=== PATIENT | female | born 1990 | race Two or more races ===

== ENCOUNTER 2017-09-04 10:52 | Emergency (ER) | payer MEDICAID ==
--- NOTE | 2017-09-04 11:42 | ER Document Report ---
ED Medical Screen (RME) - General Chief Complaint: Abdominal Pain Stated Complaint: LOWER ABDOMINAL PAIN Time Seen by Provider: 09/04/17 11:38 Notes: 27-year-old female. Limited German. LMP 07/22/2017. Positive hCG at home. Suprapubic pain and cramping. I have greeted and performed a rapid initial assessment of this patient. A comprehensive ED assessment and evaluation of the patient, analysis of test results and completion of the medical decision making process will be conducted by additional ED providers. (CORINNE FRAZIER) - Related Data Allergies/Adverse Reactions: Penicillins Allergy (Verified 09/04/17 10:54) Physical Exam - Vital signs Interpretation: Hypertensive - Discussed with patient for follow-up - Vital signs Vitals: Temp Pulse Resp BP Pulse Ox 98.5 F 98 18 126/77 H 100 09/04/17 11:01 09/04/17 11:01 09/04/17 11:01 09/04/17 11:01 09/04/17 11:01 - Notes Notes: Please note the patient was examined in the hallway is no rooms were available with current code going on. She was fully clothed. GENERAL: VS as per nursing doc. Well-appearing, well-nourished and in no acute distress. HEAD: Atraumatic, normocephalic. EYES: Sclera anicteric, no conjunctival injection or discharge. ENT: Moist mucous membranes. LUNGS: Breath sounds clear to auscultation bilaterally and equal. No wheezes rales or rhonchi. HEART: Regular rate and rhythm without murmurs. ABDOMEN: Soft, no obvious tenderness or mass noted in the sitting upright fully clothed position. PSYCH: Normal mood, normal affect. SKIN: Warm, dry. (MILTON BAKER) Course - Laboratory Result Diagrams: 09/04/17 11:53 - Re-evaluation Re-evalutation: 09/04/17 15:24 The patient needed further examination, particularly of her abdomen which cannot be performed adequately closed and in the hallway. I discussed with the patient we would need to get an servicenow administrator which is Iza here as there was some limitations in understanding though she seemed to understand for the most part. We were attempting to move her to room 7 when she told the nurse she did not want to stay any longer. I went and saw ther again and discussed with her the best I could risks and she understood I could not rule out other emergent cause of her abdominal pain. I discussed with her the findings we had at this point and that she will be leaving AMA and she voices understanding. She would not wait for me to get Iza to definitively explain this further. She did speak some partial language and appeared to understand but again refused to wait any longer. (SAMUELMILTON) - Vital Signs Vital signs: Temp Pulse Resp BP Pulse Ox 98.5 F 98 18 126/77 H 100 09/04/17 11:01 09/04/17 11:01 09/04/17 11:01 09/04/17 11:01 09/04/17 11:01 - Laboratory Laboratory results interpreted by me: 09/04/17 09/04/17 09/04/17 11:53 11:53 11:53 WBC 12.0 H Beta HCG, Quant 64360.00 H Urine HCG, Qual POSITIVE H Doctor's Discharge - Discharge Clinical Impression: Abdominal pain, Instructions: Abdominal Pain ([facility]) Additional Instructions: I was unable to perform a complete evaluation on you as you know. Return if you change your mind as I cannot rule out other causes of abdominal pain which can be serious or life-threatening on occasion. Your ultrasound showed a living fetus with heart rate with an estimated date of delivery April 29, 2018. This puts you approximately 6 weeks and 1 day today. Make sure you get follow-up in [place] and further care as discussed. I would recommend vitamins with iron or at least a multivitamin until you can get further follow-up.
[2017-09-04 12:09] LABS: ABSOLUTE BASOPHILS # (AUTO) 0.1 10^3/uL (0.0-0.2); ABSOLUTE EOSINOPHILS # (AUTO) 0.1 10^3/uL (0.0-0.6); ABSOLUTE LYMPHOCYTES (AUTO) 3.2 10^3/uL (0.5-4.7); ABSOLUTE MONOCYTES (AUTO) 0.5 10^3/uL (0.1-1.4); ABSOLUTE NEUT (AUTO) 8.2 10^3/uL (1.7-8.2); BASOPHILS % (AUTO) 0.5 % (0-2); EOSINOPHILS % (AUTO) 0.9 % (0-6); HEMATOCRIT 40.5 % (36.0-47.0); HEMOGLOBIN 13.5 g/dL (12.0-15.5); LYMPHOCYTES % (AUTO) 26.6 % (13-45); MEAN CORPUSCULAR HEMOGLOBIN 28.1 pg (27.0-33.4); MEAN CORPUSCULAR HGB CONC 33.4 g/dL (32.0-36.0); MEAN CORPUSCULAR VOLUME 84 fl (80-97); MONOCYTES % (AUTO) 3.8 % (3-13); PLATELET COUNT 338 10^3/uL (150-450); RED BLOOD COUNT 4.81 10^6/uL (3.72-5.28); RED CELL DISTRIBUTION WIDTH 12.9 % (11.5-14.0); SEGMENTED NEUTROPHILS % (AUTO) 68.2 % (42-78); TOTAL CELLS COUNTED % (AUTO) 100 %
[2017-09-04 12:19] LABS: APPEARANCE,URINE SLIGHTLY-CLOUDY; BILIRUBIN,URINE NEGATIVE (NEGATIVE); COLOR,URINE YELLOW; GLUCOSE, URINE NEGATIVE (NEGATIVE); KETONES,URINE NEGATIVE (NEGATIVE); LEUKOCYTE ESTERASE,URINE NEGATIVE (NEGATIVE); NITRITE,URINE NEGATIVE (NEGATIVE); PROTEIN,URINE NEGATIVE (NEGATIVE); URINE SPECIFIC GRAVITY 1.013; UROBILINOGEN,URINE NEGATIVE mg/dL (<2.0)
--- NOTE | 2017-09-04 15:23 | RADIOLOGY REPORT (SQ) ---
EXAM DESCRIPTION: U/S OB TRANSVAGINAL W/O DOP COMPLETED DATE/TIME: 09/04/2017 2:46 pm REASON FOR STUDY: Suprapubic pain COMPARISON: None. TECHNIQUE: Transvaginal static and realtime grayscale images acquired of the pelvis. Additional jesica cted spectral and color Doppler images recorded. All images stored on PACs. [id number] LIMITATIONS: None. FINDINGS: FETUS: Living intrauterine . EGA: 6 weeks 1 day GABINO: 04/29/2018 FHR: 104 beats per minute. SUBCHORIONIC BLEED: No SIZE OF BLEED: Not applicable. UTERUS: No masses. No anomalies. CERVICAL LENGTH: 3.2 cm Closed. RIGHT ADNEXA: Normal ovary with normal vascular flow. No adnexal free fluid. No adnexal masses. LEFT ADNEXA: Normal ovary with normal vascular flow. No adnexal free fluid. No adnexal masses. FREE FLUID: None. OTHER: No other significant finding. IMPRESSION: LIVING INTRAUTERINE . EGA 6 weeks 1 day Trimester of : First - 0 to 13 weeks. TECHNICAL DOCUMENTATION: JOB ID: [id number] [employer]- All Rights Reserved
[2017-09-04 15:26] VITALS: BP 120/78
== END 2017-09-04 15:26 | disposition left against medical advice (07) ==
LOC: ER 10:52
DX: R10.30 Lower abdominal pain, unspecified (principal); Z3A.01 Less than 8 weeks gestation of pregnancy
CPT/HCPCS: 36415; 76817; 81001; 81025; 84702; 85025; 99281

== ENCOUNTER 2018-04-04 05:06 | Inpatient (IN) | payer MEDICAID ==
[2018-04-04] MEDS ORDERED: RINGERS SOLUTION,LACTATED 1,000 ML IV ONE (06:00)
[2018-04-04] MEDS ORDERED: RINGERS SOLUTION,LACTATED 1,000 ML IV PRN (06:00)
[2018-04-04 06:09] LABS: ABSOLUTE EOSINOPHILS # (AUTO) 0.1 10^3/uL (0.0-0.6); ABSOLUTE LYMPHOCYTES (AUTO) 3.2 10^3/uL (0.5-4.7); ABSOLUTE MONOCYTES (AUTO) 0.6 10^3/uL (0.1-1.4); ABSOLUTE NEUT (AUTO) 8.6 10^3/uL (1.7-8.2); BASOPHILS % (AUTO) 0.3 % (0-2); EOSINOPHILS % (AUTO) 0.7 % (0-6); HEMATOCRIT 35.3 % (36.0-47.0); HEMOGLOBIN 11.8 g/dL (12.0-15.5); LYMPHOCYTES % (AUTO) 25.4 % (13-45); MEAN CORPUSCULAR HEMOGLOBIN 27.1 pg (27.0-33.4); MEAN CORPUSCULAR HGB CONC 33.4 g/dL (32.0-36.0); MEAN CORPUSCULAR VOLUME 81 fl (80-97); MONOCYTES % (AUTO) 4.8 % (3-13); PLATELET COUNT 269 10^3/uL (150-450); RED BLOOD COUNT 4.34 10^6/uL (3.72-5.28); RED CELL DISTRIBUTION WIDTH 14.1 % (11.5-14.0); SEGMENTED NEUTROPHILS % (AUTO) 68.8 % (42-78); TOTAL CELLS COUNTED % (AUTO) 100 %; WHITE BLOOD COUNT 12.5 10^3/uL (4.0-10.5)
[2018-04-04] MEDS ORDERED: VANCOMYCIN HCL INJ 1000 MG VIAL ONE (06:49)
--- NOTE | 2018-04-04 06:52 | Admission Physical ---
Datetime Report Generated by CPN: 04/04/2018 06:51 CURRENT ADMISSION Chief Complaint: Uterine Contractions Indication for Induction: Not Applicable Admit Impression : Active Labor; Ruptured Membranes Admit Plan: Admit to Unit; Initiate Labor Protocol ALLERGIES Medication Allergies: Yes Medication Allergies: Penicillins (04/04/2018) Latex: No Latex Allergies Food Allergies: n/a OBSTETRICAL HISTORY EDC: 04/28/2018 00:00 : 2 Para: 1 Term: 1 : 0 SAB: 0 IAB: 0 Ectopic: 0 Livin Cesareans: 0 VBACs: 0 Multiple Births: 0 Gestational Diabetes: No Rh Sensitization: No Incompetent Cervix: No JUSTIN: No Infertility: No ART Treatment: No Uterine Anomaly: No IUGR: No Hx Previous C/S: No Macrosomia: No Hx Loss/Stillborn: No PIH: No Hx : No Placenta Previa/Abruption: No Depression/PP Depression: No PTL/PROM: No Post Hemorrhage: No Current Procedures: Ultrasound; NST Obstetrical History Comments: G1-11/26/2013 G2-Current SEE RECORDS Alcohol: No Marijuana : No Cocaine: No Other Illicit Drugs: No Cigarettes: Never Smoker. [id number] MEDICAL HISTORY Diabetes: No Blood Transfusion: No Pulmonary Disease (Asthma, TB): No Breast Disease: No Hypertension: No Extruder Operator Surgery: No Heart Disease: No Hosp/Surgery: Yes Autoimmune Disorder: No Anesthetic Complications: No Kidney Disease: No Abnormal Pap Smear: No Neuro/Epilepsy: No Psychiatric Disorders: No Other Medical Diseases: No Hepatitis/Liver Disease: No Significant Family History: No Varicosities/Phlebitis: No Trauma/Violence : No Thyroid Dysfunction: No Medical History Comments: Childbirth INFECTIOUS HISTORY Gonorrhea: No Genital Herpes: No Chlamydia: No Tuberculosis: No Syphilis: No Hepatitis: No HIV/AIDS Exposure: No Rash or Viral Illness: No HPV: No PHYSICAL EXAM General: Normal HEENT: Normal Neurologic: Normal Thyroid: Normal Heart: Normal Lungs: Normal Breast: Deferred Back: Normal Abdomen: Normal Genitourinary Exam: Normal Extremities: Normal DTRs: Normal Pelvic Type: Adequate Vital Signs: Reviewed VAGINAL EXAM Dilatation: 5 Effacement: 80 Station: -2 MEMBRANES Pooling: Positive Membranes: Ruptured FETUS A EGA: 36.4 Monitoring: External US FHR- Baseline: 40 Variability: Moderate 6-25bpm FHR Category: Category I Presentation: Vertex Admit Comment: admit for delivery. gbs unknown. PLANS FOR LABOR AND DELIVERY Labor and Delivery: None Pain Management: Epidural Feeding Preference: Breast Benefit of Breast Feed Discussed: Yes Circumcision: Yes INFORMED CONSENT Signature: with User ID: [email or web address]
[2018-04-04] MEDS ORDERED: LIDOCAINE 1% INJ-PF (10 MG/ML) 30 ML SDV ONE (07:21)
[2018-04-04] MEDS ORDERED: EPHEDRINE SULFATE INJ 50 MG/1 ML AMPULE ONE (07:21)
[2018-04-04] MEDS ORDERED: MISOPROSTOL 0.2 MG TABLET ONE (07:21)
[2018-04-04] MEDS ORDERED: BUPIVACAINE HCL 0.25 % INJ/PF (2.5 MG/1 ML) 30 ML VIAL ONE (07:22)
[2018-04-04] MEDS ORDERED: FENTANYL/BUPIVACAINE/NS/PF 200 MCG/100 ML RTUINJ EPI ONE (07:22)
[2018-04-04] MEDS ORDERED: OXYTOCIN/NORMAL SALINE 20 UNIT/1,000 ML RTUINJ ONE (07:22)
[2018-04-04 08:04] LABS: APPEARANCE,URINE CLEAR; BILIRUBIN,URINE NEGATIVE (NEGATIVE); COLOR,URINE YELLOW; GLUCOSE, URINE NEGATIVE (NEGATIVE); KETONES,URINE NEGATIVE (NEGATIVE); LEUKOCYTE ESTERASE,URINE NEGATIVE (NEGATIVE); NITRITE,URINE NEGATIVE (NEGATIVE); PROTEIN,URINE NEGATIVE (NEGATIVE); URINE SPECIFIC GRAVITY 1.011; UROBILINOGEN,URINE NEGATIVE mg/dL (<2.0)
[2018-04-04 08:23] LABS: URINE AMPHETAMINES SCREEN NEGATIVE; URINE BARBITURATES SCREEN NEGATIVE; URINE BENZODIAZEPINES SCREEN NEGATIVE; URINE MARIJUANA (THC) SCREEN NEGATIVE; URINE METHADONE SCREEN NEGATIVE; URINE PHENCYCLIDINE SCREEN NEGATIVE
[2018-04-04 08:26] LABS: URINE COCAINE SCREEN NEGATIVE
--- NOTE | 2018-04-04 09:33 | L&D Progress Notes ---
PROGRESS NOTES Datetime Report Generated by CPN: 04/04/2018 09:33 PROGRESS NOTE Procedures: Sterile Vag Exam Plan: Continue Present Management Vital Signs : Reviewed Comment: VE 8/100/-1, uc's q 4 min, increase pain and pressure, Cat 1 strip, anticipate VAGINAL EXAM Dilatation: 5 Effacement: 80 Station: -2 MEMBRANES Pooling: Positive Membranes: Ruptured FETUS A Monitoring: External US Decelerations: None : 36.0 Presentation: Vertex SIGNATURE SIGNATURE: [id number];[id number] SIGNATURE: [id number] Assignment: Janine Luna MD Signature: with User ID: [email or web address] : with User ID: [email or web address]
[2018-04-04] MEDS ORDERED: BENZOCAINE/MENTHOL AEROSOL SPRAY 56 ML TOP PRN (10:24)
[2018-04-04] MEDS ORDERED: MAGNESIUM HYDROXIDE SUSP 30 ML UDCUP PO PRN (10:24)
[2018-04-04] MEDS ORDERED: DIPHENHYDRAMINE HCL 25 MG CAPSULE PO PRN (10:24)
[2018-04-04] MEDS ORDERED: MEASLES,MUMPS&RUBELLA VACC/PF 0.5 ML VIAL SUBCUT PRN (10:24)
[2018-04-04] MEDS ORDERED: DIBUCAINE 1% OINTMENT 28 GM TP PRN (10:24)
[2018-04-04] MEDS ORDERED: PROMETHAZINE HCL 25 MG TABLET PO PRN (10:24)
[2018-04-04] MEDS ORDERED: GLYCERIN/WITCH HAZEL LEAF 1 EACH MED..PAD TP PRN (10:24)
[2018-04-04] MEDS ORDERED: DIPH/PERTUSS(ACELL)/TETANUS VAC/PF 0.5 ML SYR (>=10YO) IM PRN (10:24)
[2018-04-04] MEDS ORDERED: PROMETHAZINE HCL INJ 25 MG/1 ML VIAL IV PRN (10:24)
[2018-04-04] MEDS ORDERED: ACETAMINOPHEN WITH CODEINE #3 TABLET PO PRN ×2 (10:24)
[2018-04-04] MEDS ORDERED: PSEUDOEPHEDRINE HCL 30 MG TABLET PO PRN (10:24)
[2018-04-04] MEDS ORDERED: OXYTOCIN/NORMAL SALINE 20 UNIT/1,000 ML RTUINJ IV PRN (10:24)
[2018-04-04] MEDS ORDERED: PROMETHAZINE HCL 25 MG SUPP.RECT PR PRN (10:24)
[2018-04-04] MEDS ORDERED: ACETAMINOPHEN 650 MG SUPP.RECT PR PRN (10:24)
[2018-04-04] MEDS ORDERED: NA PHOS,M-B/NA PHOS,DI-BA (ADULT) 133 ML ENEMA PR PRN (10:24)
--- NOTE | 2018-04-04 10:32 | Warning Signs in Babies ---
VOD Warning Signs Datetime Report Generated by [facility]: 04/04/2018 10:32 VOD#608 -Warning Signs in Babies: Needs to be viewed. (04/04/2018 05:13:Gege Horner RN)
--- NOTE | 2018-04-04 13:13 | Delivery Summary ---
Del Sum A-C Datetime Report Generated by CPN: 04/04/2018 13:13 DELIVERY PERSONNEL DELIVERY PERSONNEL: [id number] Delivery Doctor:: Rosa Solano CNM Labor and Delivery Nurse:: Gege Henry RNcommunications manager Nurse:: ADRIANE Calderon Tech/TRACK MAINTAINER: Amber Cash CNA II MATERNAL INFORMATION Delivery Anesthesia: Epidural Medications After Delivery: Pitocin Bolus-Please Comment; Pitocin Drip 20 Units/1000ml NSS Maternal Complications: None Provider Comments: viable male from OA to YINKA over intact perineum, cord clamped and cut by gmother after 2 minutes, spont delivery of grossly nl intact placenta, 3 VC, baby and mom remain in recovery in stable condition. FFFM, mom bonding with baby LABOR SUMMARY EDC: 04/28/2018 00:00 No. Babies in Womb: 1 Attempted: No Labor Anesthesia: Epidural LABOR INFORMATION Reason for Induction: Not Applicable Onset of Labor: 04/04/2018 05:33 Complete Dilatation: 04/04/2018 09:53 Oxytocin: N/A Group B Beta Strep: Unknown Antibiotics # of Doses: 1 Name of Antibiotic Given: Vancomycin Steroids Given: None Reason Steroids Not Administered: Not Applicable MEMBRANES Membranes Rupture Method: Spontaneous Rupture of Membranes: 04/04/2018 05:30 Length of Rupture (hr): 4.70 Amniotic Fluid Color: Clear Amniotic Fluid Amount: Small Amniotic Fluid Odor: Normal STAGES OF LABOR Stage 1 hr: 4 Stage 1 min: 20 Stage 2 hr: 0 Stage 2 min: 19 Stage 3 hr: 0 Stage 3 min: 2 Total Time in Labor hr: 4 Total Time in Labor min: 41 VAGINAL DELIVERY Episiotomy: None Laceration #1: None Laceration Extension #1: N/A Laceration Repair: Not Applicable Sponge Count Correct: N/A Sharps Count Correct: N/A BABY A INFORMATION Delivery Date/Time: 04/04/2018 10:12 Method of Delivery: Vaginal Born in Route : No : N/A Forceps: N/A Vacuum Extraction: N/A Shoulder Dystocia : No PRESENTATION/POSITION BABY A Presentation: Cephalic Cephalic Presentation: Vertex Vertex Position: Left Occipital Anterior Breech Presentation: N/A PLACENTA INFORMATION BABY A Placenta Delivery Time : 04/04/2018 10:14 Placenta Method of Delivery: Spontaneous Placenta Status: Delivered SCORES BABY A Heart Rate 1 min: >100 bpm Resp Effort 1 min: Good Cry Reflex Irritability 1 min: Cough or Sneeze or Pulls Away Muscle Tone 1 min: Active Motion Color 1 min: Body [place], Extremities Blue Resuscitation Effort 1 min: N/A SCORE 1 MIN: 9 Heart Rate 5 min: >100 bpm Resp Effort 5 min: Good Cry Reflex Irritability 5 min: Cough or Sneeze or Pulls Away Muscle Tone 5 min: Active Motion Color 5 min: Body [place], Extremities Blue Resuscitation Effort 5 min: N/A SCORE 5 MIN: 9 INFORMATION BABY A Gestational Age at Delivery: 36.4 Gestational Status: Late - 34- 36.6 Weeks Outcome : Liveborn Infant Condition : Stable Infant Sex: Male IDENTIFICATION BABY A Verification Date/Time: 04/04/2018 10:58 ID Band Number: [id number] Mother's Name Verified: Yes Infant RN Verifying Infant: Bette Hussein, RN/ C. Elaine, RN WEIGHT/LENGTH BABY A Infant Birthweight (gm): 3210 Infant Weight (lb): 7 Infant Weight (oz): 1 Length (in): 19.75 Infant Length (cm): 50.17 CORD INFORMATION BABY A No. Cord Vessels: 3 Nuchal Cord : N/A Cord Blood Taken: Yes-For Eval (Mom's Blood Type - or O+) Suction: None ASSESSMENT BABY A Infant Complications: None Physical Findings at Delivery: Within Normal Limits Infant Respirations: Appears Normal Skin to Skin: Yes Finance Attorney/ALS Called : No Care By: Michael Henry RN Transferred To: Remains with Mother BABY B INFORMATION : N/A
--- NOTE | 2018-04-04 13:14 | Delivery Summary ---
Del Sum A-C Datetime Report Generated by CPN: 04/04/2018 13:14 DELIVERY PERSONNEL DELIVERY PERSONNEL: [id number] Delivery Doctor:: Rosa Solano CNM Labor and Delivery Nurse:: Gege Henry RNwell drill operator helper cable tool Nurse:: ADRIANE Calderon Tech/POCKET CREASER: Amber Cash CNA II MATERNAL INFORMATION Delivery Anesthesia: Epidural Medications After Delivery: Pitocin Bolus-Please Comment; Pitocin Drip 20 Units/1000ml NSS Maternal Complications: None Provider Comments: viable male from OA to YINKA over intact perineum, cord clamped and cut by gmother after 2 minutes, spont delivery of grossly nl intact placenta, 3 VC, baby and mom remain in recovery in stable condition. FFFM, mom bonding with baby LABOR SUMMARY EDC: 04/28/2018 00:00 No. Babies in Womb: 1 Attempted: No Labor Anesthesia: Epidural LABOR INFORMATION Reason for Induction: Not Applicable Onset of Labor: 04/04/2018 05:33 Complete Dilatation: 04/04/2018 09:53 Oxytocin: N/A Group B Beta Strep: Unknown Antibiotics # of Doses: 1 Name of Antibiotic Given: Vancomycin Steroids Given: None Reason Steroids Not Administered: Not Applicable MEMBRANES Membranes Rupture Method: Spontaneous Rupture of Membranes: 04/04/2018 05:30 Length of Rupture (hr): 4.70 Amniotic Fluid Color: Clear Amniotic Fluid Amount: Small Amniotic Fluid Odor: Normal STAGES OF LABOR Stage 1 hr: 4 Stage 1 min: 20 Stage 2 hr: 0 Stage 2 min: 19 Stage 3 hr: 0 Stage 3 min: 2 Total Time in Labor hr: 4 Total Time in Labor min: 41 VAGINAL DELIVERY Episiotomy: None Laceration #1: None Laceration Extension #1: N/A Laceration Repair: Not Applicable Sponge Count Correct: N/A Sharps Count Correct: N/A BABY A INFORMATION Delivery Date/Time: 04/04/2018 10:12 Method of Delivery: Vaginal Born in Route : No : N/A Forceps: N/A Vacuum Extraction: N/A Shoulder Dystocia : No PRESENTATION/POSITION BABY A Presentation: Cephalic Cephalic Presentation: Vertex Vertex Position: Left Occipital Anterior Breech Presentation: N/A PLACENTA INFORMATION BABY A Placenta Delivery Time : 04/04/2018 10:14 Placenta Method of Delivery: Spontaneous Placenta Status: Delivered SCORES BABY A Heart Rate 1 min: >100 bpm Resp Effort 1 min: Good Cry Reflex Irritability 1 min: Cough or Sneeze or Pulls Away Muscle Tone 1 min: Active Motion Color 1 min: Body [place], Extremities Blue Resuscitation Effort 1 min: N/A SCORE 1 MIN: 9 Heart Rate 5 min: >100 bpm Resp Effort 5 min: Good Cry Reflex Irritability 5 min: Cough or Sneeze or Pulls Away Muscle Tone 5 min: Active Motion Color 5 min: Body [place], Extremities Blue Resuscitation Effort 5 min: N/A SCORE 5 MIN: 9 INFORMATION BABY A Gestational Age at Delivery: 36.4 Gestational Status: Late - 34- 36.6 Weeks Outcome : Liveborn Infant Condition : Stable Infant Sex: Male IDENTIFICATION BABY A Verification Date/Time: 04/04/2018 10:58 ID Band Number: [id number] Mother's Name Verified: Yes Infant RN Verifying Infant: Bette Hussein, RN/ C. Elaine, RN WEIGHT/LENGTH BABY A Infant Birthweight (gm): 3210 Infant Weight (lb): 7 Infant Weight (oz): 1 Length (in): 19.75 Infant Length (cm): 50.17 CORD INFORMATION BABY A No. Cord Vessels: 3 Nuchal Cord : N/A Cord Blood Taken: Yes-For Eval (Mom's Blood Type - or O+) Suction: None ASSESSMENT BABY A Infant Complications: None Physical Findings at Delivery: Within Normal Limits Infant Respirations: Appears Normal Skin to Skin: Yes White Washer/ALS Called : No Care By: Michael Henry RN Transferred To: Remains with Mother BABY B INFORMATION : N/A
[2018-04-04] MEDS: DOCUSATE SODIUM 100 MG CAPSULE PO SCH (18:42)
[2018-04-04] MEDS: FERROUS SULFATE 325 MG TABLET PO SCH (18:42)
[2018-04-04] MEDS: IBUPROFEN 800 MG TABLET PO SCH ×2 (21:47→21:51)
[2018-04-04] MEDS ORDERED: FAMOTIDINE 20 MG TABLET PO SCH (22:00)
[2018-04-05] MEDS: IBUPROFEN 800 MG TABLET PO SCH ×3 (05:29→22:09)
[2018-04-05 07:17] LABS: HEMATOCRIT 35.8 % (36.0-47.0); HEMOGLOBIN 11.8 g/dL (12.0-15.5); MEAN CORPUSCULAR VOLUME 82 fl (80-97); PLATELET COUNT 261 10^3/uL (150-450); RED BLOOD COUNT 4.37 10^6/uL (3.72-5.28); RED CELL DISTRIBUTION WIDTH 14.2 % (11.5-14.0); WHITE BLOOD COUNT 13.2 10^3/uL (4.0-10.5)
--- NOTE | 2018-04-05 09:26 | PDOC PROGRESS REPORT ---
Subjective-OB Progress Note for:: 04/05/18 Subjective: PP Day#1, Doing well, no complaints, Physical Exam (OB) Vital Signs: Temp Pulse Resp BP Pulse Ox 98.2 F 97 16 105/67 97 04/05/18 08:06 04/05/18 08:06 04/05/18 08:06 04/05/18 08:06 04/05/18 08:06 Intake & Output 04/04/18 04/05/18 04/06/18 06:59 06:59 06:59 Weight 87.5 kg - PIH/Pre-Eclampsia Headache: Absent Epigastric Pain: No Visual Changes: No - Lochia Lochia Amount: Small 10-25 ml Lochia Color: Rubra/Red - Abdomen Description: Soft, Round Hernia Present: No Fundal Description: Firm, Midline Fundal Height: u/u - u/2 Objective-Diagnostic Laboratory: 04/05/18 06:41 04/05/18 06:41 WBC 13.2 H RBC 4.37 Hgb 11.8 L Hct 35.8 L MCV 82 MCH 27.0 MCHC 33.0 RDW 14.2 H Plt Count 261
[2018-04-05] MEDS: DOCUSATE SODIUM 100 MG CAPSULE PO SCH ×2 (10:42→17:29)
[2018-04-05] MEDS: FERROUS SULFATE 325 MG TABLET PO SCH ×2 (10:42→17:29)
[2018-04-05] MEDS: PRENATAL VITAMIN W DHA CAPSULE PO SCH (10:42)
[2018-04-05] MEDS: SENNOSIDES/DOCUSATE 8.6-50 MG 1 EACH TABLET PO SCH (10:42)
[2018-04-06] MEDS: FERROUS SULFATE 325 MG TABLET PO SCH (09:27)
[2018-04-06] MEDS: SENNOSIDES/DOCUSATE 8.6-50 MG 1 EACH TABLET PO SCH (09:27)
[2018-04-06] MEDS: PRENATAL VITAMIN W DHA CAPSULE PO SCH (09:27)
[2018-04-06] MEDS: DOCUSATE SODIUM 100 MG CAPSULE PO SCH (09:27)
[2018-04-06] MEDS: IBUPROFEN 800 MG TABLET PO SCH (09:28)
--- NOTE | 2018-04-06 09:39 | PDOC PROGRESS REPORT ---
Subjective-OB Progress Note for:: 04/06/18 Subjective: PP Day #2, doing well, no complaints, beastfeeding Physical Exam (OB) Vital Signs: Temp Pulse Resp BP Pulse Ox 97.9 F 97 18 123/71 98 04/05/18 20:00 04/05/18 20:00 04/05/18 20:00 04/05/18 20:00 04/05/18 20:00 Intake & Output 04/05/18 04/06/18 04/07/18 06:59 06:59 06:59 Intake Total 640 Balance 640 - General General Appearance: Appears well, Alert In distress: None - PIH/Pre-Eclampsia Clonus: Negative Headache: Absent Epigastric Pain: No Visual Changes: No - Lochia Lochia Amount: Scant < 10 ml Lochia Color: Rubra/Red - Abdomen Description: Soft, Round Hernia Present: No Fundal Description: Firm Fundal Height: u/u - u/2 - Respiratory Respiratory Status: No respiratory distress - Abdominal Inspection: Normal - Extremities Upper extremity: Normal inspection Lower extremities: Edema - trace - Neurological Cognition: Normal Orientation: AAOx4 - Psychological Associated symptoms: Normal affect, Normal mood Objective-Diagnostic Laboratory: 04/05/18 06:41 Assessment and Plan(PN) - Assessment and Plan (1) Delivery normal Is this a current diagnosis for this admission?: Yes - Time Spent with Patient Time with patient: Less than 15 minutes - Disposition Anticipated Discharge: Home Disposition: stable condition
--- NOTE | 2018-04-06 09:42 | PDOC DISCHARGE SUMMARY ---
Final Diagnosis Discharge Date: 04/06/18 - Final Diagnosis (1) Delivery normal Is this a current diagnosis for this admission?: Yes Discharge Data - Discharge Medication Prescriptions: Ibuprofen [Motrin 800 mg Tablet] 800 mg PO Q8 #30 tablet Home Medications: Ibuprofen [Motrin 800 mg Tablet] 800 mg PO Q8 #30 tablet 04/06/18 Vit/Dha [ Multi + Dha Capsule] 1 cap PO DAILY capsule Reason(s) for Admission: Onset of Labor Procedures: Ultrasound Intrapartum Procedure(s): Spontaneous Vaginal Delivery - Diagnosis Test Laboratory: Temp Pulse Resp BP Pulse Ox 98.8 F 83 18 120/76 95 04/06/18 08:12 04/06/18 08:12 04/06/18 08:12 04/06/18 08:12 04/06/18 08:12 04/04/18 04/04/18 04/05/18 05:58 06:42 06:41 RBC 4.34 4.37 Hgb 11.8 L 11.8 L Hct 35.3 L 35.8 L Urine Opiates Screen NEGATIVE - Discharge information/Instructions Discharge Activity: Activity As Tolerated Discharge Diet: As Tolerated Disposition: HOME, SELF-CARE Follow up with: [facility] in: 3, Weeks
[2018-04-06] MEDS: VANCOMYCIN HCL 1,000 MG in DEXTROSE 5%-WATER 250 ML IV SCH ×2 (09:51→09:52)
[2018-04-06 12:01] VITALS: BP 123/71
== END 2018-04-06 13:51 | disposition home or self-care (01) | DRG 775 ==
LOC: LC 05:06 → LR 05:37 → 2N 15:32
PROVIDERS: ADMIT Obstetrics & Gynecology; ATTEND Obstetrics & Gynecology
PROC: 10E0XZZ Delivery of Products of Conception, External Approach (ICD-10-PCS; principal; 2018-04-04)
PROC: 4A1HXCZ Monitoring of Products of Conception, Cardiac Rate, External Approach (ICD-10-PCS; 2018-04-04)
DX: O42.913 Preterm premature rupture of membranes, unspecified as to length of time between rupture and onset of labor, third trimester (principal); Z3A.36 36 weeks gestation of pregnancy; Z37.0 Single live birth; Z88.0 Allergy status to penicillin
CPT/HCPCS: 36415; 80307; 81001; 85025; 85027; 86592; 86850; 86900; 86901; 90715; J2590; J3370; J3490